=== PATIENT | female | born 1985 ===

== ENCOUNTER 2023-09-14 05:51 | Day surgery (SDC) | payer OTHER ==
[~2023-09-14 05:51] MED LIST: FUSION PLUS CA1 EACH; VALSARTAN80 MG PO
[2023-09-14] MEDS ORDERED: POVIDONE-IODINE 118 ML BOTT TOP ONE (09:15)
[2023-09-14] MEDS ORDERED: CEFAZOLIN SODIUM 1,000 MG VIAL IV ONE (09:15)
[2023-09-14] MEDS ORDERED: FUROsemide 20 MG TABLET PO SCH (11:00)
[2023-09-14] MEDS ORDERED: FUROsemide 20 MG TABLET PO ONE (12:15)
[2023-09-14] MEDS ORDERED: METHYLERGONOVINE MALEATE 0.2 MG/ML AMPUL IM SCH (15:00)
[2023-09-14] MEDS ORDERED: METHYLERGONOVINE MALEATE 0.2 MG/ML AMPUL IM ONE (18:00)
== END 2023-09-14 15:10 | disposition home or self-care (01) ==
LOC: CIR.AMB 05:51
PROVIDERS: ATTEND Obstetrics & Gynecology
DX: D25.0 Submucous leiomyoma of uterus (principal); N92.1 Excessive and frequent menstruation with irregular cycle; Z91.013 Allergy to seafood

== ENCOUNTER 2024-08-22 05:57 | Day surgery (SDC) | payer OTHER ==
[2024-08-22] MEDS ORDERED: CEFAZOLIN SODIUM 1,000 MG VIAL ONE ×2 (07:15→07:34)
[2024-08-22] MEDS ORDERED: CHLORHEXIDINE GLUCONATE 120 ML BOTTLE TOP ONE (07:15)
[2024-08-22] MEDS ORDERED: METHYLERGONOVINE MALEATE 0.2 MG/ML AMPUL ONE (09:05)
[2024-08-22] MEDS ORDERED: CELEBREX200MG PO (10:50)
[2024-08-22] MEDS ORDERED: AMOX1TAB5 PO (10:51)
[2024-08-22] MEDS ORDERED: MORPHINE SULFATE 4 MG/ML VIAL IV ONE (12:05)
== END 2024-08-22 13:55 | disposition home or self-care (01) ==
LOC: CIR.AMB 05:57
PROVIDERS: ATTEND Obstetrics & Gynecology
DX: D25.0 Submucous leiomyoma of uterus (principal); N92.0 Excessive and frequent menstruation with regular cycle; Z91.013 Allergy to seafood